=== PATIENT | female | born 1965 | race Caucasian/White ===

== ENCOUNTER 2017-07-30 21:03 | Emergency (ER) | payer MEDICARE, MEDICAID ==
[2014-06-14 10:58] VITALS: BMI 54.5
[~2017-07-30 21:03] MED LIST: AMOXICILLIN500 M1 PO; COZAAR50 MG PO; HYDROCODON-ACE1 EAC6 PO; NEURONTIN 300300 MG PO; PERCOCET 10/3251 TA1 PO; SYNTHROID25 MCG PO; TENORMIN100 MG PO; VIIBRYD40 MG PO; XANAX1 MG PO; ZANAFLEX4 MG PO; ZOLOFT50 MG PO
== END 2017-07-30 23:03 | disposition home or self-care (01) ==
LOC: D.ER 21:03
DX: M25.561 Pain in right knee (principal); I87.2 Venous insufficiency (chronic) (peripheral); I48.2 Chronic atrial fibrillation

== ENCOUNTER 2017-08-14 09:25 | Emergency (ER) | payer MEDICARE, MEDICAID ==
[2014-06-14 10:58] VITALS: BMI 54.5
== END 2017-08-14 10:36 | disposition home or self-care (01) ==
LOC: D.ER 09:25
DX: L03.116 Cellulitis of left lower limb (principal); R21 Rash and other nonspecific skin eruption; I48.2 Chronic atrial fibrillation

== ENCOUNTER 2017-12-10 12:59 | Emergency (ER) | payer MEDICARE, MEDICAID ==
[2014-06-14 10:58] VITALS: BMI 54.5
== END 2017-12-10 15:46 | disposition home or self-care (01) ==
LOC: D.ER 12:59
DX: S40.012A Contusion of left shoulder, initial encounter (principal); S70.02XA Contusion of left hip, initial encounter; W19.XXXA Unspecified fall, initial encounter; Y93.89 Activity, other specified; Y92.019 Unspecified place in single-family (private) house as the place of occurrence of the external cause

== ENCOUNTER 2017-12-11 02:49 | Emergency (ER) | payer MEDICARE, MEDICAID ==
[2014-06-14 10:58] VITALS: BMI 54.5
== END 2017-12-11 05:32 | disposition home or self-care (01) ==
LOC: D.ER 02:49
DX: M25.552 Pain in left hip (principal); Z91.81 History of falling

== ENCOUNTER 2017-12-12 22:05 | Emergency (ER) | payer MEDICARE, MEDICAID ==
[2014-06-14 10:58] VITALS: BMI 54.5
[2017-12-13 00:40] LABS: BASOPHILS 0.2 % (0-2); EOSINOPHILS 0.1 % (0-7); IMMATURE GRANULOCYTES 0.4 % (0-5); LYMPHOCYTES 16.1 % (15-50); MCH 22.8 pg (26.0-34.0); MCHC 29.4 g/dL (31.0-37.0); MCV 77.4 fL (80.0-100.0); MEAN PLATELET VOLUME 10.9 fL (7.4-10.4); MONOCYTES 7.5 % (2-11); NEUTROPHILS 75.7 % (40-80); PLATELET COUNT 169 10x3/uL (130-400); RBC 4.39 10x6/uL (4.00-5.40); RDW 18.1 % (11.5-14.5); WBC 11.2 10x3/uL (4.8-10.8)
[2017-12-13 00:52] LABS: ALKALINE PHOSPHATASE 87 U/L (46-116); ALT (SGPT) 39 U/L (10-68); CALC OSMOLALITY 285 mosm/kg (275-300); CALCIUM 9.3 mg/dL (8.5-10.1); CHLORIDE - SERUM 105 mmol/L (98-107); CREATININE - SERUM 1.3 mg/dL (0.6-1.3); GLUCOSE 114 mg/dL (74-106); SODIUM 141 mmol/L (136-145); UREA NITROGEN 25 mg/dL (7-18); eGFR NON AFRICAN AMERICAN 46 mL/min (90-120)
[2017-12-13 01:04] LABS: CKMB 5.1 U/L (0.0-3.6); CREATINE KINASE 461 UL (21-215); PRO BNP 828 pg/mL (0-125); TROPONIN-I < 0.017 ng/mL (0.000-0.060)
== END 2017-12-13 05:20 | disposition home or self-care (01) ==
LOC: D.ER 22:05
PROVIDERS: Family Medicine
DX: R06.00 Dyspnea, unspecified (principal); J20.9 Acute bronchitis, unspecified

== ENCOUNTER 2018-03-04 14:15 | Inpatient (IN) | payer MEDICARE, MEDICAID ==
[~2018-03-04] VITALS: Ht 165.1 cm; Wt 169.1 kg
[2018-03-04 15:05] LABS: BASOPHILS 0.3 % (0-2); HEMATOCRIT 34.4 % (36.0-48.0); HEMOGLOBIN 10.3 g/dL (12-16); LYMPHOCYTES 26.9 % (15-50); MCH 24.2 pg (26.0-34.0); MCHC 29.9 g/dL (31.0-37.0); MCV 80.8 fL (80.0-100.0); MEAN PLATELET VOLUME 10.5 fL (7.4-10.4); MONOCYTES 8.9 % (2-11); NEUTROPHILS 61.9 % (40-80); PLATELET COUNT 144 10x3/uL (130-400); RBC 4.26 10x6/uL (4.00-5.40); RDW 17.8 % (11.5-14.5); WBC 6.4 10x3/uL (4.8-10.8)
[2018-03-04 15:22] LABS: ALBUMIN 3.6 g/dL (3.4-5.0); BILIRUBIN - TOTAL 0.52 mg/dL (0.2-1.3); CALCIUM 9.1 mg/dL (8.5-10.1); CARBON DIOXIDE 27.7 mmol/L (21.0-32.0); CREATININE - SERUM 0.9 mg/dL (0.6-1.3); POTASSIUM - SERUM 3.7 mmol/L (3.5-5.1); PROTEIN - SERUM 7.6 g/dL (6.4-8.2)
[2018-03-04 19:17] VITALS: BP 185/83
[2018-03-05] VITALS (7 sets, daily range): BP systolic 138–176; BP diastolic 61–94; Ht 165.1 cm; Wt 169.1 kg
[2018-03-05 05:03] LABS: BASOPHILS 0.2 % (0-2); EOSINOPHILS 3.2 % (0-7); HEMATOCRIT 35.1 % (36.0-48.0); HEMOGLOBIN 10.4 g/dL (12-16); LYMPHOCYTES 21.5 % (15-50); MCH 24.2 pg (26.0-34.0); MCHC 29.6 g/dL (31.0-37.0); MCV 81.6 fL (80.0-100.0); MONOCYTES 6.9 % (2-11); NEUTROPHILS 68.2 % (40-80); PLATELET COUNT 152 10x3/uL (130-400); RDW 17.8 % (11.5-14.5); WBC 5.1 10x3/uL (4.8-10.8)
[2018-03-05 05:38] LABS: ANION GAP 12.4 mmol/L (8-16); CALCIUM 8.9 mg/dL (8.5-10.1); CARBON DIOXIDE 27.3 mmol/L (21.0-32.0); CREATININE - SERUM 0.9 mg/dL (0.6-1.3); POTASSIUM - SERUM 3.7 mmol/L (3.5-5.1)
[2018-03-06 04:59] VITALS: BP 145/72
[2018-03-06 08:27] VITALS: BP 153/84
[2018-03-06 12:02] VITALS: BP 167/74
[2018-03-06] MEDS ORDERED: NEURONTIN 300300 MG PO (13:13)
[2018-03-06] MEDS ORDERED: PROTONIX40 MG PO (13:13)
[2018-03-06] MEDS ORDERED: GLUCOPHAGE500 MG PO (13:14)
[2018-03-06] MEDS ORDERED: OXYBUTYNIN CHLOR5 MG PO (13:14)
== END 2018-03-06 17:09 | disposition home health service (06) | DRG 300 ==
LOC: D.ER 14:15 → D.M2 18:18 → D.EDHOLD 18:18 → D.M2 03-05 10:45
PROVIDERS: Family Medicine
DX: I70.232 Atherosclerosis of native arteries of right leg with ulceration of calf (principal); L03.116 Cellulitis of left lower limb; L03.115 Cellulitis of right lower limb; Z68.44 Body mass index [BMI] 60.0-69.9, adult; E66.2 Morbid (severe) obesity with alveolar hypoventilation; L97.221 Non-pressure chronic ulcer of left calf limited to breakdown of skin; I89.0 Lymphedema, not elsewhere classified; L97.211 Non-pressure chronic ulcer of right calf limited to breakdown of skin; E11.9 Type 2 diabetes mellitus without complications; I70.242 Atherosclerosis of native arteries of left leg with ulceration of calf

== ENCOUNTER → 2020-02-06 09:40 | Outpatient (CLI) | payer MEDICARE, MEDICAID ==
[2018-03-05 13:37] VITALS: BMI 66.7
[~2020-02-06 09:40] MED LIST changes: +GLUCOPHAGE500 MG PO; +OXYBUTYNIN CHLOR5 MG PO; +PROTONIX40 MG PO
== END | disposition home or self-care (01) ==
LOC: D.HCCECHO 09:30
PROVIDERS: ATTEND Internal Medicine Cardiovascular Disease
DX: I42.9 Cardiomyopathy, unspecified (principal); M25.551 Pain in right hip; M25.552 Pain in left hip

== ENCOUNTER → 2020-02-10 21:57 | Outpatient (CLI) | payer MEDICARE, MEDICAID ==
[2018-03-05 13:37] VITALS: BMI 66.7
[2020-02-10 22:20] LABS: CALCIUM 10.2 mg/dL (8.5-10.1); CARBON DIOXIDE 32.4 mmol/L (21.0-32.0); CREATININE - SERUM 1.6 mg/dL (0.6-1.3); POTASSIUM - SERUM 4.4 mmol/L (3.5-5.1)
== END | disposition home or self-care (01) ==
LOC: D.LABREF 21:57
PROVIDERS: ATTEND Nurse Practitioner
DX: I10 Essential (primary) hypertension (principal); R60.0 Localized edema; I42.9 Cardiomyopathy, unspecified